=== PATIENT | male | born 1975 | race African-American/Black ===

== ENCOUNTER → 2022-03-17 | Day surgery (SDC) | payer OTHER ==
[~2022-03-17] MED LIST: BUPIVACAINE 0.25% 30ML SDV ONE; DEXAMETHASONE SOD PHOS INJ 4 MG/ML SDV ONE; FENTANYL CITRATE/PF 100MCG/2 ML INJ ONE; LIDOCAINE HCL 2% LOCAL INJ 5 ML SDV VIAL INJ ONE; MUPIROCIN 2% OINT 22 GM TUBE ONE; ONDANSETRON HCL INJ 2MG/ML 2ML 2 MG/ML VIAL ONE; POVIDONE IODINE 0.05% 0.05 % ML PO ONE; PROPOFOL IV EMULSION 10 MG/ML 20 ML VIAL ONE; SEROQUEL100 MG PO; SEVOFLURANE INHAL SOLN 250 ML PEN BTL ONE; SODIUM CHLORIDE 0.9% 50ML 100 ML ONE; SUBOXONE 8 MG-1 EAC2 PO; TRAMADOL HCL 50 MG TAB ONE
[2022-03-17 06:43] LABS: ANION GAP 12.8 mmol/L (8-16); CALCIUM 9.1 mg/dL (8.4-10.2); CREATININE, SERUM 0.91 mg/dL (0.72-1.25); POTASSIUM 3.8 mmol/L (3.5-5.1)
[2022-03-17 11:30] VITALS: BP 134/71
== END | disposition home or self-care (01) ==
LOC: OR 05:29
PROVIDERS: ATTEND Podiatrist Foot & Ankle Surgery
DX: M20.42 Other hammer toe(s) (acquired), left foot (principal); M77.52 Other enthesopathy of left foot and ankle; L60.0 Ingrowing nail; M89.8X7 Other specified disorders of bone, ankle and foot; G47.33 Obstructive sleep apnea (adult) (pediatric); I69.398 Other sequelae of cerebral infarction; I10 Essential (primary) hypertension; I25.2 Old myocardial infarction; R53.1 Weakness; M54.2 Cervicalgia; M54.9 Dorsalgia, unspecified; M19.90 Unspecified osteoarthritis, unspecified site; E66.9 Obesity, unspecified; F20.9 Schizophrenia, unspecified; F31.9 Bipolar disorder, unspecified; Z88.8 Allergy status to other drugs, medicaments and biological substances; Z20.822 Contact with and (suspected) exposure to COVID-19; Z79.899 Other long term (current) drug therapy; Z68.31 Body mass index [BMI] 31.0-31.9, adult
CPT/HCPCS: 11750 ×2; 28285; 28288; 36415; 80048; 93005; J0690; J1100; J2001; J2405; J2704; J3010; U0002